=== PATIENT | female | born 2000 | race Caucasian/White ===

== ENCOUNTER → 2022-06-29 | Emergency (ER) | payer OTHER ==
[~2022-06-29] VITALS: Ht 147.3 cm; Wt 75.7 kg
[~2022-06-29] MED LIST: ACETAMINOPHEN650 M2 PO; AZITHROMYCIN500 MG PO; MUCINEX DM ER1 EACH PO; PRENATAL MULTI1 EACH PO; ZYRTEC10 MG PO
== END | disposition home or self-care (01) ==
LOC: ER 19:07
DX: O99.512 Diseases of the respiratory system complicating pregnancy, second trimester (principal); Z3A.20 20 weeks gestation of pregnancy; Z20.822 Contact with and (suspected) exposure to COVID-19

== ENCOUNTER 2022-09-02 22:31 | Inpatient (IN) | payer OTHER ==
[~2022-09-02] VITALS: Ht 147.3 cm; Wt 79.4 kg
[2022-09-02] MEDS ORDERED: PRENATAL TABLE1 EAC1 PO (22:41)
== END 2022-09-05 15:46 | disposition home or self-care (01) | DRG 833 ==
LOC: OBS/DEL 22:31 → LDR 09-03 08:28 → OB/GYN 09-04 08:15
PROVIDERS: ADMIT Obstetrics & Gynecology; ATTEND Obstetrics & Gynecology
PROC: BY4FZZZ Ultrasonography of Third Trimester, Single Fetus (ICD-10-PCS; principal; 2022-09-03)
PROC: 4A1HXCZ Monitoring of Products of Conception, Cardiac Rate, External Approach (ICD-10-PCS; 2022-09-03)
DX: O26.893 Other specified pregnancy related conditions, third trimester (principal); R10.2 Pelvic and perineal pain; Z3A.29 29 weeks gestation of pregnancy; Z20.822 Contact with and (suspected) exposure to COVID-19

== ENCOUNTER 2022-10-12 14:52 | Outpatient (CLI) | payer OTHER ==
[~2022-10-12 14:52] MED LIST changes: +PRENATAL TABLE1 EAC1 PO
== END 2022-10-12 16:26 | disposition home or self-care (01) ==
LOC: PRENATAL 14:52
PROVIDERS: ATTEND Obstetrics & Gynecology Maternal & Fetal Medicine
DX: O35.9XX0 Maternal care for (suspected) fetal abnormality and damage, unspecified, not applicable or unspecified (principal); O35.3XX0 Maternal care for (suspected) damage to fetus from viral disease in mother, not applicable or unspecified; O34.219 Maternal care for unspecified type scar from previous cesarean delivery; Z3A.34 34 weeks gestation of pregnancy

== ENCOUNTER 2022-11-09 12:15 | Inpatient (IN) | payer OTHER ==
[~2022-11-09] VITALS: Ht 149.9 cm; Wt 90.7 kg
== END 2022-11-16 14:34 | disposition home or self-care (01) | DRG 785 ==
LOC: OB/GYN 11-14 11:16 → O/R 11-14 11:16 → OB/GYN 11-14 12:15 → O/R 11-14 15:19 → OB/GYN 11-14 21:24
PROVIDERS: ADMIT Obstetrics & Gynecology; ATTEND Obstetrics & Gynecology
PROC: 0UB70ZZ Excision of Bilateral Fallopian Tubes, Open Approach (ICD-10-PCS; 2022-11-14)
PROC: 4A1HXCZ Monitoring of Products of Conception, Cardiac Rate, External Approach (ICD-10-PCS; 2022-11-14)
PROC: 10D00Z1 Extraction of Products of Conception, Low, Open Approach (ICD-10-PCS; principal; 2022-11-14 13:00)
DX: O34.211 Maternal care for low transverse scar from previous cesarean delivery (principal); O36.63X0 Maternal care for excessive fetal growth, third trimester, not applicable or unspecified; Z3A.49 Greater than 42 weeks gestation of pregnancy; Z37.0 Single live birth; Z30.2 Encounter for sterilization; Z20.822 Contact with and (suspected) exposure to COVID-19